=== PATIENT | female | born 1980 | race Caucasian/White ===

== ENCOUNTER 2019-03-28 15:41 | Emergency (ER) | payer SELFPAY ==
[~2019-03-28] VITALS: Ht 162.6 cm; Wt 54.4 kg
--- OUTSIDE RECORDS SUMMARY | 2019-03-28 15:46 | XMS REPORT | Continuity of Care Document ---
Author Organization Unknown Address Unknown Allergies There is no data. Medications There is no data. Problems There is no data. Procedures There is no data. Results There is no data. Encounters ACCT No. Visit Date/Time Discharge Status Pt. Type Provider Facility Loc./Unit Complaint [id number] 03/18/2019 09:00:00 03/18/2019 23:59:59 [facility]
[2019-03-28] MEDS ORDERED: RT-ALBUTEROL/IPRATROPIUM 3 ML (DUONEB) VIAL INH ONE (16:45)
--- NOTE | 2019-03-28 16:54 | ED Back Pain ---
General Chief Complaint: Back Problems Stated Complaint: BACK PAIN Source of Information: Patient Exam Limitations: No Limitations History of Present Illness Date Seen by Provider: Mar 28, 2019 Time Seen by Provider: 16:40 Initial Comments Here with report of right-sided low back pain after having to lift her boyfriend who also has a back injury. This is been going on over the last couple of weeks. Zkhi-flh-wwbjkxm Aleve is not helping. Denies bowel or bladder incontinence. Denies other injuries or concerns. Location: Lumbar Spine, Paraspinous Muscles Timing/Duration: 1 Week Severity: Moderate Pain/Injury Location: Back Radiation: Buttocks, Upper Legs Method of Injury: Other Modifying Factors: Worse With Movement; Improves With Rest Associated Symptoms: muscle spasms; No fever, No weakness, No numbness in legs/feet, No tingling in legs/feet, No sensory/motor loss; lower back pain; No loss of bladder control, No loss of bowel control Allergies and Home Medications Allergies Coded Allergies: No Known Drug Allergies (Unverified , 03/28/19) Patient Home Medication List Home Medication List Reviewed: Yes Review of Systems Constitutional: see HPI; No chills, No fever Respiratory: no symptoms reported Cardiovascular: no symptoms reported Gastrointestinal: no symptoms reported Musculoskeletal: see HPI, back pain, muscle pain, muscle stiffness Skin: no symptoms reported Psychiatric/Neurological: No Symptoms Reported Past Nftjxjp-Jalzll-Vqkuqr Hx Past Med/Social Hx: Reviewed Nursing Past Med/Soc Hx Patient Social History Alcohol Use: Denies Use Recreational Drug Use: No Smoking Status: Never a Smoker Recent Foreign Travel: No Contact w/Someone Who Travel: No Past Medical History Surgeries: No Respiratory: No Cardiac: No Family Medical History No Pertinent Family Hx Physical Exam Vital Signs Capillary Refill : Height, Weight, BMI Height: '" Weight: lbs. oz. kg; BMI Method: General Appearance: No Apparent Distress, WD/WN Cardiovascular: Regular Rate, Rhythm, No Murmur Respiratory: Lungs Clear, Normal Breath Sounds Gastrointestinal: Non Tender, Soft Back: Decreased Range of Motion, Muscle Spasm (right-sided); No Vertebral Tenderness Extremity: Normal Range of Motion, Non Tender Neurologic/Psychiatric: Alert, Oriented x3 Skin: Normal Color, Warm/Dry, Other (multiple sores noted throughout skin on back.) Progress/Results/Core Measures Results/Orders My Orders Orders - KAYLA BERUMEN MD Chest Pa/Lat (2 View) (03/28/19 16:35) Albuterol/Ipra Inhalation Soln (Duoneb I (03/28/19 16:45) Progress Progress Note : Progress Note Seen and evaluated. Declined Toradol. Discharged home with return precautions. Patient verbalize understanding instructions and agreement with plan. Departure Impression Primary Impression: Lumbar radiculopathy Additional Impression: Lumbar sprain Qualified Codes: S33.5XXA - Sprain of ligaments of lumbar spine, initial encounter Disposition: HOME, SELF-CARE Condition: Stable Departure-Patient Inst. Decision time for Depature: 16:52 Referrals: NO,LOCAL PHYSICIAN (PCP) Primary Care Physician Patient Instructions: Low Back Pain (DC), Muscle Strain (DC), Radiculopathy (DC) Add. Discharge Instructions: All discharge instructions reviewed with patient and/or family. Voiced understanding. Take medications as directed. You may take Aleve 1 or 2 tablets every 12 hours as needed for pain.. You may also take Tylenol/acetaminophen 650 mg every 8 hours as needed for pain. You may use oioa-gkz-zmvcrym Icy Hot with lidocaine patches, Aspercreme with lidocaine patches, Salonpas with lidocaine patches for similar items to area of concern per package directions. Follow-up with your Dr. in a few days for recheck. Return for worse pain, weakness, numbness between your legs, difficulty with walking or going to the bathroom or other concerns as needed. Scripts Prednisone (Prednisone) 20 Mg Tab 40 MG PO DAILY, #14 TAB 0 Refills Prov: KAYLA BERUMEN MD 03/28/19 Cyclobenzaprine HCl (Cyclobenzaprine HCl) 10 Mg Tablet 10 MG PO Q8H PRN for SPASMS, #15 TAB 0 Refills Prov: KAYLA BERUMEN MD 03/28/19 KAYLA BERUMEN MD Mar 28, 2019 16:54
[2019-03-28] MEDS ORDERED: PRD20T PO (16:55)
[2019-03-28] MEDS ORDERED: CYCL10TA9 PO (16:55)
[2019-03-28 17:00] VITALS: BP 104/77
== END 2019-03-28 17:00 | disposition home or self-care (01) ==
LOC: ER FS 15:43
DX: S33.5XXA Sprain of ligaments of lumbar spine, initial encounter (principal); M54.16 Radiculopathy, lumbar region; X50.0XXA Overexertion from strenuous movement or load, initial encounter
CPT/HCPCS: 99281

== ENCOUNTER 2019-08-10 23:53 | Emergency (ER) | payer SELFPAY ==
[~2019-08-10] VITALS: Ht 157.5 cm; Wt 54.5 kg
[~2019-08-10 23:53] MED LIST: CYCL10TA9 PO; PRD20T PO
--- NOTE | 2019-08-11 00:08 | ED EENT ---
History of Present Illness General Chief Complaint: Ear Problems Stated Complaint: EAR ACHE,HEADACHE Source: patient Exam Limitations: no limitations History of Present Illness Date Seen by Provider: Aug 11, 2019 Time Seen by Provider: 00:05 Initial Comments 39-year-old female presents with right ear pain. Reports it also causing her a headache. Reports it started yesterday, she has a lot of congestion. Patient thinks that maybe she's had a fever, mild cough. Allergies and Home Medications Allergies Coded Allergies: No Known Drug Allergies (Unverified , 03/28/19) Home Medications Cyclobenzaprine HCl 10 Mg Tablet, 10 MG PO Q8H PRN for SPASMS Prescribed by: KAYLA BERUMEN on 03/28/191654 Prednisone 20 Mg Tab, 40 MG PO DAILY Prescribed by: KAYLA BERUMEN on 03/28/191654 Patient Home Medication List Home Medication List Reviewed: Yes Review of Systems Review of Systems Constitutional: No chills, No dizziness Eyes: No Symptoms Reported Ears: See HPI Nose: congestion Mouth: no symptoms reported Throat: no symptoms reported Respiratory: cough; No short of breath Cardiovascular: No chest pain Skin: no symptoms reported Past Wsxnxri-Sfomfs-Bvdugu Hx Past Med/Social Hx: Reviewed Nursing Past Med/Soc Hx Patient Social History Alcohol Use: Denies Use Recreational Drug Use: No Drug of Choice: hx-meth Type Used: Cigarettes 2nd Hand Smoke Exposure: Yes Recent Foreign Travel: No Contact w/Someone Who Travel: No Recent Hopitalizations: No Physical Abuse: No Sexual Abuse: No Mistreated: No Fear: No Immunizations Up To Date Tetanus Booster (TDap): Unknown Seasonal Allergies Seasonal Allergies: No Past Medical History Surgeries: No Respiratory: No Cardiac: No Neurological: No Genitourinary: No Gastrointestinal: No Musculoskeletal: No Endocrine: No HEENT: No Cancer: No Psychosocial: No Integumentary: No Blood Disorders: No Family Medical History No Pertinent Family Hx Physical Exam Vital Signs Vital Signs - First Documented 08/11/19 00:01 Temp 37.0 Pulse 99 Resp 16 B/P (MAP) 106/89 (95) Pulse Ox 98 O2 Delivery Room Air Height, Weight, BMI Height: 5'4.00" Weight: 120lbs. oz. 54.410454ph; BMI Method:Stated General Appearance: WD/WN, no apparent distress Eyes: bilateral eye normal inspection Ears: right ear auricle normal, right ear canal normal, right ear other (mild fluid otherwise normal); left ear TM normal Nose: normal inspection Mouth/Throat: pharynx normal Neck: non-tender Cardiovascular: normal peripheral pulses, regular rate, rhythm Respiratory: chest non-tender, lungs clear, normal breath sounds Neurologic/Psychiatric: normal mood/affect, oriented x 3 Skin: normal color Progress/Results/Core Measures Results/Orders Vital Signs/I&O 08/11/19 08/11/19 00:01 00:13 Temp 37.0 37.0 Pulse 99 99 Resp 16 16 B/P (MAP) 106/89 (95) 106/89 (95) Pulse Ox 98 98 O2 Delivery Room Air Departure Impression Primary Impression: Acute serous otitis media of right ear Qualified Codes: H65.01 - Acute serous otitis media, right ear Additional Impression: Viral URI Disposition: HOME, SELF-CARE Condition: Stable Departure-Patient Inst. Referrals: NO,LOCAL PHYSICIAN (PCP) Primary Care Physician Patient Instructions: Viral Upper Respiratory Infection, Adult (DC), Serous Otitis Media DANIELA OSORIO DO Aug 11, 2019 00:08
[2019-08-11 00:13] VITALS: BP 106/89
== END 2019-08-11 00:13 | disposition home or self-care (01) ==
LOC: EDUNIT# 23:53 → ER FS 23:57
DX: H65.01 Acute serous otitis media, right ear (principal); J06.9 Acute upper respiratory infection, unspecified; Z79.52 Long term (current) use of systemic steroids; Z77.22 Contact with and (suspected) exposure to environmental tobacco smoke (acute) (chronic)
CPT/HCPCS: 99282

== ENCOUNTER 2019-08-27 10:00 | Emergency (ER) | payer SELFPAY ==
[~2019-08-27] VITALS: Ht 162 cm; Wt 70.0 kg
[2019-08-27 10:14] VITALS: BP 103/65
--- NOTE | 2019-08-27 10:16 | ED Upper Extremity ---
General Chief Complaint: Upper Extremity Stated Complaint: LT WRIST PAIN Nursing Triage Note: LEFT WRIST PAIN. 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 PAIN HAS BEEN WAXING AND WANING FOR 2-3 DAYS NOW. Nursing Sepsis Screen: No Definite Risk History of Present Illness Date Seen by Provider: Aug 27, 2019 Time Seen by Provider: 10:10 Initial Comments 39-year-old female history as described by nurse above is accurate patient very specifically describes pain and tenderness in the extensor tendons of the thumb radiating up onto the wrist and forearm there has been no fall or injury Allergies and Home Medications Allergies Coded Allergies: No Known Drug Allergies (Unverified , 03/28/19) Home Medications Cyclobenzaprine HCl 10 Mg Tablet, 10 MG PO Q8H PRN for SPASMS Prescribed by: KAYLA BERUMEN on 03/28/191654 Prednisone 20 Mg Tab, 40 MG PO DAILY Prescribed by: KAYLA BERUMEN on 03/28/191654 Patient Home Medication List Home Medication List Reviewed: Yes Review of Systems Constitutional: no symptoms reported EENTM: no symptoms reported Respiratory: no symptoms reported Cardiovascular: no symptoms reported Gastrointestinal: No abdominal pain Genitourinary: no symptoms reported Past Vmfevll-Gkqooz-Nrfncy Hx Patient Social History Drug of Choice: hx-meth Type Used: Cigarettes 2nd Hand Smoke Exposure: Yes Recent Foreign Travel: No Contact w/Someone Who Travel: No Recent Infectious Disease Expo: No Recent Hopitalizations: No Immunizations Up To Date Tetanus Booster (TDap): Unknown Seasonal Allergies Seasonal Allergies: No Past Medical History Surgeries: No Respiratory: No Cardiac: No Neurological: No Genitourinary: No Gastrointestinal: No Musculoskeletal: No Endocrine: No HEENT: No Cancer: No Psychosocial: No Integumentary: No Blood Disorders: No Family Medical History No Pertinent Family Hx Physical Exam Vital Signs Vital Signs - First Documented 08/27/19 10:07 Temp 36.2 Pulse 90 Resp 18 B/P (MAP) 103/65 (78) Pulse Ox 98 O2 Delivery Room Air Capillary Refill : Less Than 3 Seconds Height, Weight, BMI Height: 5'4.00" Weight: 120lbs. oz. 54.718935md; 26.00 BMI Method:Stated General Appearance: WD/WN, no apparent distress HEENT: PERRL/EOMI, pharynx normal Neck: supple Cardiovascular: regular rate, rhythm Respiratory: normal breath sounds Gastrointestinal: normal bowel sounds (left hand/wrist ext tendons tender from dorsal thumb to radial wrist typical deQuervains) Progress/Results/Core Measures Results/Orders My Orders Orders - LEONARD OLSEN MD Cockup Splint (08/27/19 10:09) Vital Signs/I&O 08/27/19 10:07 Temp 36.2 Pulse 90 Resp 18 B/P (MAP) 103/65 (78) Pulse Ox 98 O2 Delivery Room Air Blood Pressure Mean: 78 POS Departure Impression Primary Impression: Tenosynovitis, de Quervain Disposition: HOME, SELF-CARE Condition: Stable Departure-Patient Inst. Decision time for Depature: 10:15 Referrals: [facility] (PCP) Primary Care Physician GHISLAINE BRYANT APRN (Family) Primary Care Physician Patient Instructions: De Quervain's Tenosynovitis Scripts Indomethacin (Indomethacin) 50 Mg Capsule 50 MG PO TIDWM, #20 CAP Prov: LEONARD OLSEN MD 08/27/19 LEONARD OLSEN MD Aug 27, 2019 10:16 POS
[2019-08-27] MEDS ORDERED: INDO50CA11 PO (10:18)
== END 2019-08-27 10:21 | disposition home or self-care (01) ==
LOC: EDUNIT# 10:00 → ER FS 10:01
DX: M65.4 Radial styloid tenosynovitis [de Quervain] (principal); Z79.52 Long term (current) use of systemic steroids; Z77.22 Contact with and (suspected) exposure to environmental tobacco smoke (acute) (chronic)
CPT/HCPCS: 99282

== ENCOUNTER 2019-10-29 11:43 | Emergency (ER) | payer SELFPAY ==
[~2019-10-29] VITALS: Ht 162 cm; Wt 57.0 kg
[~2019-10-29 11:43] MED LIST changes: +INDO50CA82 PO
[2019-10-29] MEDS ORDERED: IBUPROFEN 800 MG (MOTRIN) TAB PO ONE (12:45)
--- NOTE | 2019-10-29 13:23 | ED Back Pain ---
General Chief Complaint: Back Problems Stated Complaint: FALL - BACK/NECK PAIN, LT ARM PAIN Nursing Triage Note: PT FELL AT 0945 THIS AM AT [employer]. NO REDNESS, ABRASIONS, OR SWELLING NOTED TO THE LOWER BACK AREA. PT ALSO COMPLAINS OF LEFT WRIST PAIN. NO SWELLING, ABRASION, OR DEFORMITIES NOTED. PT RATES PAIN AT 102/10 Nursing Sepsis Screen: No Definite Risk Source of Information: Patient Exam Limitations: No Limitations History of Present Illness Date Seen by Provider: Oct 29, 2019 Time Seen by Provider: 13:20 Initial Comments This 39-year-old white female presents after she fell at [employer] shortly prior to presentation emergency department. She fell onto her low back and left wrist. She complained of pain in both areas. She's been able to weight-bear and employed in the left upper extremity but with discomfort. She denies associated head injury. She has no neck or back pain other than in the low back. She denies paresthesias or weakness of any of her 4 extremities. She denies trauma to the chest or abdomen. Patient's pain is sharp in nature and severe. It is made worse with movement. Allergies and Home Medications Allergies Coded Allergies: No Known Drug Allergies (Unverified , 03/28/19) Home Medications Cyclobenzaprine HCl 10 Mg Tablet, 10 MG PO Q8H PRN for SPASMS Prescribed by: KAYLA BERUMEN on 03/28/19 1655 Indomethacin 50 Mg Capsule, 50 MG PO TIDWM Prescribed by: LEONARD OLSEN on 08/27/19 1018 Prednisone 20 Mg Tab, 40 MG PO DAILY Prescribed by: KAYLA BERUMEN on 03/28/19 1655 Patient Home Medication List Home Medication List Reviewed: Yes Review of Systems Constitutional: no symptoms reported EENTM: no symptoms reported Respiratory: no symptoms reported Cardiovascular: no symptoms reported Gastrointestinal: no symptoms reported, see HPI Musculoskeletal: see HPI, back pain, joint pain (left wrist) Skin: no symptoms reported, other Psychiatric/Neurological: No Symptoms Reported (no abrasions) Past Lznkguw-Mskjoy-Phxvbm Hx Past Med/Social Hx: Reviewed Nursing Past Med/Soc Hx Patient Social History Alcohol Use: Denies Use Recreational Drug Use: No Drug of Choice: hx-meth Type Used: Cigarettes 2nd Hand Smoke Exposure: Yes Recent Foreign Travel: No Contact w/Someone Who Travel: No Recent Infectious Disease Expo: No Recent Hopitalizations: No Physical Abuse: No Sexual Abuse: No Mistreated: No Fear: No Immunizations Up To Date Tetanus Booster (TDap): Unknown Seasonal Allergies Seasonal Allergies: No Past Medical History Surgeries: No Respiratory: No Cardiac: No Neurological: No Genitourinary: No Gastrointestinal: No Musculoskeletal: No Endocrine: No HEENT: No Cancer: No Psychosocial: No Integumentary: No Blood Disorders: No Family Medical History No Pertinent Family Hx Physical Exam Vital Signs Vital Signs - First Documented 10/29/19 11:54 Temp 36.4 Pulse 92 Resp 18 B/P (MAP) 114/69 (84) Pulse Ox 100 O2 Delivery Room Air Capillary Refill : Less Than 3 Seconds Height, Weight, BMI Height: 5'4.00" Weight: 120lbs. oz. 54.602148xy; 21.00 BMI Method:Stated General Appearance: Moderate Distress, Thin HEENT: PERRL/EOMI, Normal ENT Inspection, Pharynx Normal Neck: Full Range of Motion, Normal Inspection, Non Tender Cardiovascular: Regular Rate, Rhythm, No Murmur Respiratory: Lungs Clear, Normal Breath Sounds Gastrointestinal: Normal Bowel Sounds, Non Tender, Soft Back: Normal Inspection, Other (there is tenderness palpation over the lumbar spine area.) Extremity: Normal Capillary Refill, Normal Inspection, Other (or tenderness palpation over the left wrist which is not swollen and has no deformity.) Neurologic/Psychiatric: Alert, No Motor/Sensory Deficits Skin: Normal Color, Warm/Dry Progress/Results/Core Measures Results/Orders My Orders Orders - PREMA COREAS MD Lumbar Spine 4 View Or More (10/29/19 12:42) Wrist 3 View Left (10/29/19 12:42) Ibuprofen Tablet (Motrin Tablet) (10/29/19 12:45) Vital Signs/I&O 10/29/19 11:54 Temp 36.4 Pulse 92 Resp 18 B/P (MAP) 114/69 (84) Pulse Ox 100 O2 Delivery Room Air 2 Blood Pressure Mean: 84 Progress Progress Note : Time: 14:15 Progress Note X-rays failed to demonstrate evidence of fracture or dislocation of the L-spine or left wrist. Patient received ibuprofen orally in the emergency department. Departure Impression Primary Impression: Lumbar sprain Qualified Codes: S33.5XXA - Sprain of ligaments of lumbar spine, initial encounter Additional Impression: Wrist contusion Qualified Codes: S60.212A - Contusion of left wrist, initial encounter Disposition: HOME, SELF-CARE Condition: Improved Departure-Patient Inst. Decision time for Depature: 14:19 Referrals: [facility] (PCP) Primary Care Physician GHISLAINE BRYANT APRN (Family) Primary Care Physician Patient Instructions: Low Back Pain (DC) Add. Discharge Instructions: Ibuprofen for pain. Follow-up with [facility] on Thursday. Return if any problems or questions. All discharge instructions reviewed with patient and/or family. Voiced understanding. Scripts Ibuprofen (Ibuprofen) 800 Mg Tablet 800 MG PO Q8H PRN for PAIN, #30 TAB 0 Refills Prov: PREMA COREAS MD 10/29/19 PREMA COREAS MD Oct 29, 2019 13:23
--- NOTE | 2019-10-29 13:28 | Diagnostic Imaging Report ---
EXAMINATION: Lumbar spine radiographs, 5 views. COMPARISON: None. HISTORY: 39-year-old female, fall. Back pain. FINDINGS: There are 5 lumbar-type vertebral bodies. There is no identified pars interarticularis defect. There is no identified compression deformity. There is mild disc height loss at L5-S1. There are no pronounced facet degenerative changes. The sacroiliac joints are unremarkable in appearance. IMPRESSION: 1. No identified compression deformity or fracture. 2. Mild disc height loss at L5-S1. Dictated by: Dictated on workstation # [id number]
--- NOTE | 2019-10-29 13:29 | Diagnostic Imaging Report ---
EXAMINATION: Left wrist radiographs, 3 views. COMPARISON: None. HISTORY: 39-year-old female, fall. Left wrist pain. FINDINGS: There is no identified acute fracture. Bone mineralization and alignment is unremarkable. There is no prominent focal soft tissue swelling. There is no radiopaque foreign body. IMPRESSION: No identified acute bony abnormality of the left wrist. Dictated by: Dictated on workstation # [id number]
[2019-10-29] MEDS ORDERED: IBUP-1780 PO (14:20)
[2019-10-29 14:25] VITALS: BP 117/62
== END 2019-10-29 14:25 | disposition home or self-care (01) ==
LOC: EDUNIT# 11:43 → ER FS 11:44
DX: S33.5XXA Sprain of ligaments of lumbar spine, initial encounter (principal); S60.212A Contusion of left wrist, initial encounter; Z79.52 Long term (current) use of systemic steroids; Z77.22 Contact with and (suspected) exposure to environmental tobacco smoke (acute) (chronic); W19.XXXA Unspecified fall, initial encounter; Y92.511 Restaurant or cafe as the place of occurrence of the external cause
CPT/HCPCS: 72110; 73110

== ENCOUNTER 2020-07-11 04:43 | Emergency (ER) | payer SELFPAY ==
[~2020-07-11] VITALS: Ht 162.6 cm; Wt 60.1 kg
[~2020-07-11 04:43] MED LIST changes: +IBUP-1780 PO
[2020-07-11 04:55] VITALS: BP 118/69
--- NOTE | 2020-07-11 04:56 | ED General ---
General Chief Complaint: Fever-Adult/Adol Stated Complaint: FEVER Source of Information: Patient Exam Limitations: No Limitations History of Present Illness Date Seen by Provider: Jul 11, 2020 Time Seen by Provider: 04:56 Initial Comments 41-year-old female presents because she "feels like crap" she just states she doesn't feel well. That she hasn't felt well since yesterday evening when her blood sugar dropped. She states her blood sugar dropped around 56 she developed 80s. She has not checked it since then. She states she's felt warm and has some chills. She denies any cough, nausea, vomiting, diarrhea, loss of taste or smell. Allergies and Home Medications Allergies Coded Allergies: No Known Drug Allergies (Unverified , 03/28/19) Home Medications Cyclobenzaprine HCl 10 Mg Tablet, 10 MG PO Q8H PRN for SPASMS Prescribed by: KAYLA BERUMEN on 03/28/19 1655 Ibuprofen 800 Mg Tablet, 800 MG PO Q8H PRN for PAIN Prescribed by: PREMA COREAS MD on 10/29/19 1420 Indomethacin 50 Mg Capsule, 50 MG PO TIDWM Prescribed by: LEONARD OLSEN on 08/27/19 1018 Prednisone 20 Mg Tab, 40 MG PO DAILY Prescribed by: KAYLA BERUMEN on 03/28/19 1655 Patient Home Medication List Home Medication List Reviewed: Yes Review of Systems Review of Systems Constitutional: chills; No dizziness; malaise; No weakness EENTM: no symptoms reported; No ear pain, No throat pain Respiratory: No cough, No short of breath Cardiovascular: No chest pain, No palpitations Gastrointestinal: No abdominal pain, No nausea, No vomiting Genitourinary: no symptoms reported Musculoskeletal: no symptoms reported Skin: no symptoms reported Psychiatric/Neurological: No Symptoms Reported Hematologic/Lymphatic: See HPI Immunological/Allergic: no symptoms reported Past Zygppku-[place]-Lvgbdx Hx Past Med/Social Hx: Reviewed Nursing Past Med/Soc Hx Patient Social History Drug of Choice: hx-meth Type Used: Cigarettes 2nd Hand Smoke Exposure: Yes Recent Foreign Travel: No Contact w/Someone Who Travel: No Recent Hopitalizations: No Immunizations Up To Date Tetanus Booster (TDap): Unknown Seasonal Allergies Seasonal Allergies: No Past Medical History Surgeries: No Respiratory: No Cardiac: No Neurological: No Genitourinary: No Gastrointestinal: No Musculoskeletal: No Endocrine: No HEENT: No Cancer: No Psychosocial: No Integumentary: No Blood Disorders: No Family Medical History No Pertinent Family Hx Physical Exam Vital Signs Vital Signs - First Documented 07/11/20 04:55 Temp 37.5 Pulse 119 Resp 18 B/P (MAP) 118/69 (85) Pulse Ox 95 O2 Delivery Room Air Capillary Refill : Height, Weight, BMI Height: 5'4.00" Weight: 120lbs. oz. 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 She was offered labs for further evaluation but declined because she "not like needles", she was offered a urinalysis that declined she does not have any urinary symptoms, she was offered a chest x-ray but declined. Patient's bedside glucose was 124. Per patient's request she will be given a work note for today. I discussed with her this likely an early viral illness versus other unknown etiology. Patient should follow with her primary care provider as needed. When reviewing her bedside glucose and likely viral illness. Patient states her sister head 24-hour flu yesterday and thinks this might be what it is. Per her request no further workup will be initiated Departure Impression Primary Impression: Viral syndrome Disposition: 01 HOME, SELF-CARE Condition: Stable Departure-Patient Inst. Referrals: [facility] (PCP) Primary Care Physician GHISLAINE BRYANT APRN (Family) Primary Care Physician Patient Instructions: Viral Syndrome (DC) Add. Discharge Instructions: Emergency department focuses on treating and ruling out life-threatening diseases. Whenever possible, a diagnosis is given. However, most patients are given an impression based on their history, physical exam, and workup during your brief time in the ER. Information about probable diagnosis and other educational material has been provided. Please take the time to read and understand this information. It is very important that you follow up with a physician as discussed during the visit today. Failure to adhere to your follow-up instructions may lead to severe disability, injury, or so please make sure to keep your appointments or obtain one as requested. Please keep in mind the emergency department is not designed to your primary care or "family doctor" and nonurgent issues are best evaluated by an outpatient physician All discharge instructions reviewed with patient and/or family. Voiced u nderstanding. Work/School Note: Work Release Form Date Seen in the Emergency Department: Jul 11, 2020 Return to Work: Jul 12, 2020 DANIELA OSORIO DO Jul 11, 2020 04:56
== END 2020-07-11 05:11 | disposition home or self-care (01) ==
LOC: EDUNIT# 04:43 → ER FS 04:47
DX: B34.9 Viral infection, unspecified (principal); Z79.52 Long term (current) use of systemic steroids; Z77.22 Contact with and (suspected) exposure to environmental tobacco smoke (acute) (chronic)
CPT/HCPCS: 82962

== ENCOUNTER 2021-04-21 23:40 | Emergency (ER) | payer SELFPAY ==
[~2021-04-21] VITALS: Ht 162 cm; Wt 52.1 kg
[2021-04-21 23:48] VITALS: BP 112/63
--- NOTE | 2021-04-21 23:48 | ED Lower Extremity ---
General Stated Complaint: LEFT FOOT INJURY History of Present Illness Date Seen by Provider: Apr 21, 2021 Time Seen by Provider: 11:45 Initial Comments 41-year-old female presents with left ankle pain. Patient reports around 8 PM she stepped in a hole and injured it. She reports she has pain difficulty bearing weight. Pains on the medial aspect of the left ankle. There are some mild swelling. No obvious deformity. Allergies and Home Medications Allergies Coded Allergies: No Known Drug Allergies (Unverified , 03/28/19) Home Medications Cyclobenzaprine HCl 10 Mg Tablet, 10 MG PO Q8H PRN for SPASMS Prescribed by: KAYLA BERUMEN on 03/28/19 1655 Ibuprofen 800 Mg Tablet, 800 MG PO Q8H PRN for PAIN Prescribed by: PREMA COREAS MD on 10/29/19 1420 Indomethacin 50 Mg Capsule, 50 MG PO TIDWM Prescribed by: LEONARD OLSEN on 08/27/19 1018 Prednisone 20 Mg Tab, 40 MG PO DAILY Prescribed by: KAYLA BERUMEN on 03/28/19 1655 Patient Home Medication List Home Medication List Reviewed: Yes Review of Systems Constitutional: no symptoms reported EENTM: no symptoms reported Respiratory: no symptoms reported Cardiovascular: no symptoms reported Gastrointestinal: no symptoms reported Musculoskeletal: see HPI Skin: see HPI Psychiatric/Neurological: No Symptoms Reported Physical Exam Vital Signs Vital Signs - First Documented 04/21/21 23:48 Temp 36.8 Pulse 113 Resp 16 B/P (MAP) 112/63 (79) Pulse Ox 94 O2 Delivery Room Air Capillary Refill : Height, Weight, BMI Height: '" Weight: lbs. oz. kg; BMI Method: General Appearance: no apparent distress Neck: full range of motion, supple Cardiovascular: normal peripheral pulses, regular rate, rhythm Respiratory: lungs clear, normal breath sounds Gastrointestinal: non tender, soft Hips: bilateral hip non-tender Legs: bilateral leg non-tender Knees: bilateral knee non-tender Ankles: right ankle non-tender, right ankle normal inspection, right ankle normal range of motion; left ankle limited range of motion, left ankle soft tissue tenderness, left ankle swelling Neurologic/Psychiatric: alert, normal mood/affect, oriented x 3 Skin: normal color, warm/dry Progress/Results/Core Measures Results/Orders My Orders Orders - DANIELA OSORIO DO Ankle 3 View Left (04/21/21 23:48) Gel Ankle Brace (04/22/21 00:00) Vital Signs/I&O 04/21/21 23:48 Temp 36.8 Pulse 113 Resp 16 B/P (MAP) 112/63 (79) Pulse Ox 94 O2 Delivery Room Air Progress Progress Note : Progress Note X-ray shows no acute fracture dislocation. Patient placed in a gel ankle brace. Patient discharged home in stable condition Diagnostic Imaging Diagonstic Imaging: Xray Plain Films/CT/US/NM/MRI: ankle Comments No acute fracture or dislocation Reviewed: Reviewed by Me Departure Impression Primary Impression: Sprain and strain of ankle Disposition: 01 HOME, SELF-CARE Condition: Stable Departure-Patient Inst. Patient Instructions: Ankle Sprain ED Add. Discharge Instructions: 4% topical lidocaine with menthol to affected area as directed on package Ice to affected area Tylenol or ibuprofen as needed for pain DANIELA OSORIO DO Apr 21, 2021 23:48
--- NOTE | 2021-04-22 07:00 | Diagnostic Imaging Report ---
Indication: Trauma to left ankle AP, oblique and lateral views of left ankle are obtained. FINDINGS: No acute fracture or dislocation is identified. No abnormal lytic or sclerotic focus is seen, and there is no radiopaque foreign body. IMPRESSION: No acute abnormality. Dictated by: Dictated on workstation # [id number]
== END 2021-04-22 00:13 | disposition home or self-care (01) ==
LOC: EDUNIT# 23:40 → ER FS 23:43
DX: S93.402A Sprain of unspecified ligament of left ankle, initial encounter (principal); Z79.52 Long term (current) use of systemic steroids; W18.42XA Slipping, tripping and stumbling without falling due to stepping into hole or opening, initial encounter
CPT/HCPCS: 73610

== ENCOUNTER 2022-04-28 22:06 | Emergency (ER) | payer MEDICAID, OTHER ==
[~2022-04-28] VITALS: Ht 162 cm; Wt 59.0 kg
[~2022-04-28 22:06] MED LIST changes: +CYCL10TA25 PO; -CYCL10TA9 PO
[2022-04-28 22:10] VITALS: BP 127/76
[2022-04-28] MEDS ORDERED: LORazepam 0.5 MG (ATIVAN) TABLET PO STA (22:21)
--- NOTE | 2022-04-28 22:21 | ED Cardiac General ---
History of Present Illness General Chief Complaint: Chest Pain Stated Complaint: CP Source: patient Exam Limitations: no limitations History of Present Illness Date Seen by Provider: Apr 28, 2022 Time Seen by Provider: 22:09 Initial Comments Through [id number] female with past medical history of hypothyroidism coming in due to chest pain. Been going on for roughly 24 hours, feels like someone is punching her in the center of the chest or back somewhat. Tried antacids earlier which did not help. The pain was moderate, constant, however it did stop when she came here and now she is pain-free. Denies any prior history of DVT or PE, no recent surgery, does not take any hormones, no leg swelling or pain, no prior history of [place]. Recently quit smoking. She says she has had "pleurisy" before and this feels similar. Is otherwise denying any shortness of breath, abdominal pain, nausea, vomiting, diarrhea, weakness, numbness, fever, chills, rash, or any other concerns. Of note, she is now following an mechanical unit repairer for over a month now who has been handling her thyroid issues. She says she is much better from that standpoint. Allergies and Home Medications Allergies Coded Allergies: No Known Drug Allergies (Unverified , 03/28/19) Patient Home Medication List Home Medication List Reviewed: Yes Cyclobenzaprine HCl (Cyclobenzaprine HCl) 10 Mg Tablet, 10 MG PO Q8H PRN for SPASMS Prescribed by: KAYLA BERUMEN on 03/28/19 1655 Ibuprofen (Ibuprofen) 800 Mg Tablet, 800 MG PO Q8H PRN for PAIN Prescribed by: PREMA COREAS MD on 10/29/19 1420 Indomethacin (Indomethacin) 50 Mg Capsule, 50 MG PO TIDWM Prescribed by: LEONARD OLSEN on 08/27/19 1018 Prednisone (Prednisone) 20 Mg Tab, 40 MG PO DAILY Prescribed by: KAYLA BERUMEN on 03/28/19 1655 Review of Systems Review of Systems Constitutional: No fever EENTM: No Blurred Vision Respiratory: Denies Cough, Denies Shortness of Air Cardiovascular: Chest Pain Gastrointestinal: Denies Abdominal Pain Genitourinary: No Symptoms Reported Musculoskeletal: no symptoms reported Skin: no symptoms reported Psychiatric/Neurological: No Symptoms Reported Endocrine: No Symptoms Reported Hematologic/Lymphatic: No Symptoms Reported All Other Systems Reviewed Negative Unless Noted: Yes Past Nxjqbjl-Tyknmu-Btpxkg Hx Patient Social History Tobacco Use?: Yes Tobacco type used: Cigarettes Immunizations Up To Date Tetanus Booster (TDap): Unknown Seasonal Allergies Seasonal Allergies: No Past Medical History Surgeries: No Respiratory: No Cardiac: No Neurological: No Genitourinary: No Gastrointestinal: No Musculoskeletal: No Endocrine: No HEENT: No Cancer: No Psychosocial: No Integumentary: No Blood Disorders: No Family Medical History No Pertinent Family Hx Physical Exam Vital Signs Vital Signs - First Documented 04/28/22 04/28/22 22:10 22:35 Temp 36.9 Pulse 69 Resp 18 B/P (MAP) 127/76 (93) O2 Delivery Room Air Capillary Refill : Height, Weight, BMI Height: 5'4.00" Weight: 120lbs. oz. 54.765141er; 19.00 BMI Method:Stated General Appearance: No Apparent Distress, WD/WN HEENT: PERRL/EOMI, Normal ENT Inspection, Pharynx Normal Neck: Full Range of Motion, Normal Inspection, Non Tender, Supple Respiratory: Chest Non Tender, Lungs Clear, Normal Breath Sounds, No Accessory Muscle Use, No Respiratory Distress Cardiovascular: Regular Rate, Rhythm, No Edema, Normal Peripheral Pulses Gastrointestinal: Normal Bowel Sounds, Non Tender, Soft; No Distended, No Guarding Extremity: Normal Capillary Refill, Normal Inspection, Normal Range of Motion, Non Tender, No Calf Tenderness, No Pedal Edema Neurologic/Psychiatric: Alert, No Motor/Sensory Deficits, Normal Mood/Affect Skin: Normal Color, Warm/Dry Lymphatic: No Adenopathy Progress/Results/Core Measures Results/Orders Lab Results Laboratory Tests Test 04/28/22 22:16 Range/Units White Blood Count 10.2 4.3-11.0 10^3/uL Red Blood Count 4.60 3.80-5.11 10^6/uL Hemoglobin 13.8 11.5-16.0 g/dL Hematocrit 39 35-52 % Mean Corpuscular Volume 85 80-99 fL Mean Corpuscular Hemoglobin 30 25-34 pg Mean Corpuscular Hemoglobin Concent 35 32-36 g/dL Red Cell Distribution Width 13.2 10.0-14.5 % Platelet Count 265 130-400 10^3/uL Mean Platelet Volume 9.9 9.0-12.2 fL Immature Granulocyte % (Auto) 0 % Neutrophils (%) (Auto) 43 42-75 % Lymphocytes (%) (Auto) 50 H 12-44 % Monocytes (%) (Auto) 4 0-12 % Eosinophils (%) (Auto) 2 0-10 % Basophils (%) (Auto) 1 0-10 % Neutrophils # (Auto) 4.4 1.8-7.8 10^3/uL Lymphocytes # (Auto) 5.1 H 1.0-4.0 10^3/uL Monocytes # (Auto) 0.4 0.0-1.0 10^3/uL Eosinophils # (Auto) 0.2 0.0-0.3 10^3/uL Basophils # (Auto) 0.1 0.0-0.1 10^3/uL Immature Granulocyte # (Auto) 0.0 0.0-0.1 10^3/uL Prothrombin Time 13.2 12.2-14.7 SEC INR Comment 1.0 0.8-1.4 Activated Partial Thromboplast Time 29 24-35 SEC Sodium Level 138 135-145 MMOL/L Potassium Level 4.3 3.6-5.0 MMOL/L Chloride Level 105 98-107 MMOL/L Carbon Dioxide Level 23 21-32 MMOL/L Anion Gap 10 5-14 MMOL/L Blood Urea Nitrogen 12 7-18 MG/DL Creatinine 1.24 0.60-1.30 MG/DL Estimat Glomerular Filtration Rate 55 BUN/Creatinine Ratio 10 Glucose Level 122 H 70-105 MG/DL Calcium Level 9.0 8.5-10.1 MG/DL Corrected Calcium 9.0 8.5-10.1 MG/DL Magnesium Level 1.9 1.6-2.4 MG/DL Total Bilirubin 0.2 0.1-1.0 MG/DL Aspartate Amino Transf (AST/SGOT) 15 5-34 U/L Alanine Aminotransferase (ALT/SGPT) 19 0-55 U/L Alkaline Phosphatase 344 H 40-136 U/L Troponin I < 0.30 <0.30 NG/ML Total Protein 6.8 6.4-8.2 GM/DL Albumin 4.0 3.2-4.5 GM/DL Smear Scan OK My Orders Orders - MARCELO MENA MD Ekg Tracing (04/28/22 22:09) Cbc With Automated Diff (04/28/22 22:10) Magnesium (04/28/22 22:10) Chest 1 View Ap/Pa Only (04/28/22 22:10) Ekg Tracing (04/28/22 22:10) Comprehensive Metabolic Panel (04/28/22 22:10) Protime With Inr (04/28/22 22:10) Partial Thromboplastin Time (04/28/22 22:10) O2 (04/28/22 22:10) Monitor-Rhythm Ecg Trace Only (04/28/22 22:10) Ed Iv/Invasive Line Start (04/28/22 22:10) Troponin I Fs (04/28/22 22:10) Lidocaine 2% Viscous 15 Ml (Xylocaine Vi (04/28/22 22:30) Antacid Suspension (Mylanta Suspension (04/28/22 22:30) Ketorolac Injection (Toradol Injection) (04/28/22 22:30) Lorazepam Tablet (Ativan Tablet) (04/28/22 22:21) Medications Given in ED Current Medications Medications Dose Ordered Sig/Francis Route Start Time Stop Time Status Last Admin Dose Admin Al Hydrox/Mg Hydrox/Simethicone 30 ml ONCE ONCE PO 04/28/22 22:30 04/28/22 22:31 DC 04/28/22 22:42 30 ML Ketorolac Tromethamine 15 mg ONCE ONCE IVP 04/28/22 22:30 04/28/22 22:31 DC 04/28/22 22:43 15 MG Lidocaine HCl 15 ml ONCE ONCE PO 04/28/22 22:30 04/28/22 22:31 DC 04/28/22 22:42 15 ML Vital Signs/I&O 04/28/22 04/28/22 22:10 22:35 Temp 36.9 Pulse 69 Resp 18 B/P (MAP) 127/76 (93) O2 Delivery Room Air Progress Progress Note : Progress Note 42yoF with above history coming in for chest pain. ABCs were intact and vitals were stable on presentation. Physical exam reassuring with no focal abnormalities. EKG with no acute ischemic changes. Chest x-ray my interpretation with normal cardiac silhouette, no focal opacities, no pneumothorax. Physical labs including cardiac biomarkers normal. She is low risk for PE per [facility] criteria and is PERC negative. I believe the patient is stable for discharge with outpatient follow-up. She was sent home with strict return precautions. Initial ECG Impression Date: Apr 28, 2022 Initial ECG Impression Time: 22:13 Initial ECG Rate: 68 Initial ECG Rhythm: Normal Sinus Comment Narrow QRS, normal axis, no significant ST changes or T wave abnormalities Departure Impression Primary Impression: Chest pain Qualified Codes: R07.82 - Intercostal pain Disposition: 01 HOME, SELF-CARE Condition: Stable Departure-Patient Inst. Decision time for Depature: 23:19 Referrals: [facility]/VICKIE (PCP) Primary Care Physician GHISLAINE BRYANT APRN (Family) Primary Care Physician Patient Instructions: Chest Pain (DC) Add. Discharge Instructions: It does not appear like this is coming from your heart. Your x-ray looks good as well. He can try Tylenol and/or ibuprofen as needed for your pain. Possible this is pleurisy similar to what you have had in the past, but this will not be life-threatening at this time. If things worsen or you are concerned you can call your regular doctor or come back to the ER Work/School Note: Work Release Form Date Seen in the Emergency Department: Apr 28, 2022 Return to Work: Apr 30, 2022 Restrictions: No Restrictions MARCELO MENA MD Apr 28, 2022 22:21
[2022-04-28 22:24] LABS: BASOPHILS # (AUTO) 0.1 10^3/uL (0.0-0.1); BASOPHILS % (AUTO) 1 % (0-10); EOSINOPHILS # (AUTO) 0.2 10^3/uL (0.0-0.3); EOSINOPHILS % (AUTO) 2 % (0-10); HEMATOCRIT 39 % (35-52); HEMOGLOBIN 13.8 g/dL (11.5-16.0); LYMPHOCYTES # (AUTO) 5.1 10^3/uL (1.0-4.0); LYMPHOCYTES % (AUTO) 50 % (12-44); MEAN CORPUSCULAR HEMOGLOBIN 30 pg (25-34); MEAN CORPUSCULAR HGB CONC 35 g/dL (32-36); MEAN CORPUSCULAR VOLUME 85 fL (80-99); MEAN PLATELET VOLUME 9.9 fL (9.0-12.2); MONOCYTES # (AUTO) 0.4 10^3/uL (0.0-1.0); MONOCYTES % (AUTO) 4 % (0-12); NEUTROPHILS # (AUTO) 4.4 10^3/uL (1.8-7.8); NEUTROPHILS % (AUTO) 43 % (42-75); PLATELET COUNT 265 10^3/uL (130-400); WHITE BLOOD COUNT 10.2 10^3/uL (4.3-11.0)
[2022-04-28] MEDS ORDERED: ANTACID SUSP 30 ML UDC (MYLANTA) PO ONE (22:30)
[2022-04-28] MEDS ORDERED: LIDOCAINE 2% VISCOUS 15 ML UDC PO ONE (22:30)
[2022-04-28] MEDS ORDERED: KETOROLAC 30 MG/ML VIAL IVP ONE (22:30)
[2022-04-28 22:51] LABS: SMEAR SCAN COMMENT OK
[2022-04-28 22:54] LABS: PROTHROMBIN TIME PATIENT 13.2 SEC (12.2-14.7)
[2022-04-28 22:55] LABS: CREATININE SERUM 1.24 MG/DL (0.60-1.30); POTASSIUM 4.3 MMOL/L (3.6-5.0)
[2022-04-28 22:56] LABS: BILIRUBIN,TOTAL 0.2 MG/DL (0.1-1.0); MAGNESIUM 1.9 MG/DL (1.6-2.4); TOTAL PROTEIN 6.8 GM/DL (6.4-8.2)
--- NOTE | 2022-04-29 06:22 | Diagnostic Imaging Report ---
INDICATION: Chest pain. EXAMINATION: Chest 04/28/2022 FINDINGS: The cardiomediastinal silhouette is unremarkable. The pulmonary vasculature is within normal limits. The lungs and pleural spaces are clear. IMPRESSION: No evidence of an acute cardiopulmonary process. Dictated by: Dictated on workstation # [id number]
== END 2022-04-28 23:30 ==
LOC: EDUNIT# 22:06 → ER FS 22:07
DX: R07.82 Intercostal pain (principal); Z87.891 Personal history of nicotine dependence; Z28.310 Unvaccinated for COVID-19
CPT/HCPCS: 36415; 71045; 80053; 83735; 84484; 85025; 85610; 85730; 93005; 93041

== ENCOUNTER 2023-01-23 07:20 | Emergency (ER) | payer MEDICAID ==
[~2023-01-23] VITALS: Ht 162.5 cm; Wt 67.7 kg
[2023-01-23] MEDS ORDERED: cefTRIAXone PRE-MIX 50 ML IV STA (07:32)
[2023-01-23] MEDS ORDERED: NS IV 1000 ML 1,000 ML IV STA (07:32)
--- NOTE | 2023-01-23 07:41 | ED General ---
General Chief Complaint: Dizziness/Syncope Stated Complaint: DIZZINESS Source of Information: Patient History of Present Illness Date Seen by Provider: Jan 23, 2023 Time Seen by Provider: 07:24 Initial Comments 43-year-old female presenting with complaints of dizziness and not feeling well that started yesterday along with UTI symptoms. She states that she has been drinking a lot of water to the point that she had diluted her urine yesterday where they could only see if there was blood in the urine. She had gone to the urgent care clinic for [facility] and they told her they were concerned about her blood pressure being low yesterday. She was started on Bactrim for UTI as well as Pyridium. She states that she has been drinking a lot of water but woke up this morning feeling poorly and was dizzy. She states she is dizzy at all times but it is worse when she stands or is moving. She had tried checking her blood pressure at home and it was low. She denies having any nausea, vomiting, fever, chills, cough, congestion, sore throat, runny nose, abdominal pain, diarrhea, constipation. She was having pain with urination but since she started the Pyridium and Bactrim the pain is gone. Timing/Duration: 1-2 Days Severity: Moderate Modifying Factors: worse with Movement Associated Systoms: No Chest Pain, No Cough, No Diaphoresis, No Fever/Chills, No Headaches, No Loss of Appetite; Malaise; No Nausea/Vomiting, No Rash, No Seizure, No Shortness of Air, No Syncope Allergies and Home Medications Allergies Coded Allergies: Penicillins (Verified Allergy, Unknown, 01/23/23) Patient Home Medication List Home Medication List Reviewed: Yes Cyclobenzaprine HCl (Cyclobenzaprine HCl) 10 Mg Tablet, 10 MG PO Q8H PRN for SPASMS Prescribed by: KAYLA BERUMEN on 03/28/19 165 Ibuprofen (Ibuprofen) 800 Mg Tablet, 800 MG PO Q8H PRN for PAIN Prescribed by: PREMA COREAS MD on 10/29/19 1420 Indomethacin (Indomethacin) 50 Mg Capsule, 50 MG PO TIDWM Prescribed by: LEONARD OLSEN on 08/27/19 1018 Prednisone (Prednisone) 20 Mg Tab, 40 MG PO DAILY Prescribed by: KAYLA BERUMEN on 03/28/19 165 Review of Systems Review of Systems Constitutional: No chills; dizziness; No fever EENTM: see HPI Respiratory: No cough, No short of breath Cardiovascular: No chest pain, No syncope Gastrointestinal: No abdominal pain, No constipation, No diarrhea, No nausea, No vomiting Genitourinary: see HPI, dysuria (yesterday but resolved with taking Pyridium ) Musculoskeletal: no symptoms reported Skin: No rash Psychiatric/Neurological: Denies Headache Past Rfiwpxg-Cqnora-Urdfap Hx Immunizations Up To Date Tetanus Booster (TDap): Unknown Seasonal Allergies Seasonal Allergies: No Past Medical History Surgery/Hospitalization HX: Hypothyroid Surgeries: Yes Thyroidectomy Respiratory: No Cardiac: No Neurological: No Genitourinary: No Gastrointestinal: No Musculoskeletal: No Endocrine: Yes Hypothyroidsim HEENT: No Cancer: No Psychosocial: No Integumentary: No Blood Disorders: No Family Medical History No Pertinent Family Hx Physical Exam Vital Signs Vital Signs - First Documented 01/23/23 07:26 Temp 36.6 Pulse 89 Resp 16 B/P (MAP) 119/69 (86) Pulse Ox 94 O2 Delivery Room Air Capillary Refill : Height, Weight, BMI Height: 5'4.00" Weight: 120lbs. oz. 54.027284tf; 22.00 BMI Method:Stated General Appearance: No Apparent Distress, WD/WN HEENT: PERRL/EOMI; No Moist Mucous Membranes (slightly dry) Neck: Full Range of Motion, Normal Inspection, Non Tender, Supple Respiratory: Chest Non Tender, Lungs Clear, Normal Breath Sounds, No Accessory Muscle Use, No Respiratory Distress Cardiovascular: Regular Rate, Rhythm, Normal Peripheral Pulses Gastrointestinal: Normal Bowel Sounds, No Pulsatile Mass, Non Tender, Soft Rectal: Deferred Extremity: Normal Capillary Refill, Normal Inspection, No Pedal Edema Neurologic/Psychiatric: Alert, Oriented x3 Skin: Normal Color, Warm/Dry Progress/Results/Core Measures Suspected Sepsis SIRS Temperature: Pulse: Respiratory Rate: Laboratory Tests 01/23/23 07:30: White Blood Count 9.0 Blood Pressure / Mean: Laboratory Tests 01/23/23 07:30: Creatinine 1.13, Platelet Count 263, Total Bilirubin 0.4 Results/Orders Lab Results Laboratory Tests Test 01/23/23 07:30 Range/Units White Blood Count 9.0 4.3-11.0 10^3/uL Red Blood Count 4.64 3.80-5.11 10^6/uL Hemoglobin 15.3 11.5-16.0 g/dL Hematocrit 44 35-52 % Mean Corpuscular Volume 95 80-99 fL Mean Corpuscular Hemoglobin 33 25-34 pg Mean Corpuscular Hemoglobin Concent 35 32-36 g/dL Red Cell Distribution Width 12.5 10.0-14.5 % Platelet Count 263 130-400 10^3/uL Mean Platelet Volume 9.5 9.0-12.2 fL Immature Granulocyte % (Auto) 0 % Neutrophils (%) (Auto) 54 42-75 % Lymphocytes (%) (Auto) 39 12-44 % Monocytes (%) (Auto) 4 0-12 % Eosinophils (%) (Auto) 2 0-10 % Basophils (%) (Auto) 1 0-10 % Neutrophils # (Auto) 4.9 1.8-7.8 10^3/uL Lymphocytes # (Auto) 3.5 1.0-4.0 10^3/uL Monocytes # (Auto) 0.4 0.0-1.0 10^3/uL Eosinophils # (Auto) 0.2 0.0-0.3 10^3/uL Basophils # (Auto) 0.1 0.0-0.1 10^3/uL Immature Granulocyte # (Auto) 0.0 0.0-0.1 10^3/uL Urine Color ORANGE Urine Clarity CLEAR Urine pH 6.5 5-9 Urine Specific [place] <=1.005 1.016-1.022 Urine Protein 1+ H NEGATIVE Urine Glucose (UA) TRACE H NEGATIVE Urine Ketones NEGATIVE NEGATIVE Urine Nitrite NA NEGATIVE Urine Bilirubin 1+ H NEGATIVE Urine Urobilinogen 4.0 < = 1.0 MG/DL Urine Leukocyte Esterase 1+ H NEGATIVE Urine RBC (Auto) NA NEGATIVE Urine RBC NONE /HPF Urine WBC 2-5 /HPF Urine Squamous Epithelial Cells 2-5 /HPF Urine Crystals NONE /LPF Urine Bacteria FEW H /HPF Urine Casts NONE /LPF Urine Mucus NEGATIVE /LPF Urine Other CLUE CELLS /HPF Urine Culture Indicated NO Sodium Level 138 135-145 MMOL/L Potassium Level 3.9 3.6-5.0 MMOL/L Chloride Level 102 98-107 MMOL/L Carbon Dioxide Level 25 21-32 MMOL/L Anion Gap 11 5-14 MMOL/L Blood Urea Nitrogen 9 7-18 MG/DL Creatinine 1.13 0.60-1.30 MG/DL Estimat Glomerular Filtration Rate 61 BUN/Creatinine Ratio 8 Glucose Level 97 70-105 MG/DL Calcium Level 9.0 8.5-10.1 MG/DL Corrected Calcium 8.7 8.5-10.1 MG/DL Total Bilirubin 0.4 0.1-1.0 MG/DL Aspartate Amino Transf (AST/SGOT) 17 5-34 U/L Alanine Aminotransferase (ALT/SGPT) 12 0-55 U/L Alkaline Phosphatase 217 H 40-136 U/L Total Protein 7.7 6.4-8.2 GM/DL Albumin 4.4 3.2-4.5 GM/DL My Orders Orders - ALEKSANDRA VILLALOBOS MD Comprehensive Metabolic Panel (01/23/23 07:32) Ua Culture If Indicated (01/23/23 07:32) Ed Iv/Invasive Line Start (01/23/23 07:32) Cbc With Automated Diff (01/23/23 07:32) Orthostatic Vital Signs (Adult (01/23/23 07:32) Urine Bedside (01/23/23 07:32) Ns Iv 1000 Ml (Sodium Chloride 0.9%) (01/23/23 07:32) Ceftriaxone 1 Gm Pre-Mix (Rocephin 1 Gm (01/23/23 07:32) Urine Culture (01/23/23 08:17) Vital Signs/I&O 01/23/23 01/23/23 07:26 07:47 Temp 36.6 Pulse 89 84 105 97 Resp 16 B/P (MAP) 119/69 (86) 105/77 (86) 112/78 (89) 113/98 (103) Pulse Ox 94 O2 Delivery Room Air Capillary Refill : Progress Note #1: Progress Note Potential diagnosis of dehydration, hyponatremia, hypothyroidism, pyelonephri tis, vertigo, electrolyte imbalance, renal failure, hepatic failure. Obtain orthostatic vital signs on the patient to help evaluate her dizziness. Watch for signs of her blood pressure and heart rate changing to indicate that she was having hydration issues. Obtain peripheral IV access and send labs for complete blood count, comprehensive metabolic profile, urinalysis. Ordered normal saline 1 L IV fluid bolus for hydration and ceftriaxone 1 g IV for antibiotics to help treat her UTI. After nursing had obtained the orthostatic vital signs she did not have any significant tilt in her blood pressure although her heart rate did increase almost 20 bpm when going from laying to sitting that improved with standing. However with orthostatics she was symptomatically dizzy with changing of her positions. Progress Note #2: Time: 08:19 Progress Note Her complete blood count showed normal white blood cell count 9 and she was not anemic with a hemoglobin of 15.3. On the comprehensive metabolic profile she had no acute significant normality with her electrolytes. Her sodium was normal at 138. Potassium normal at 3.9. Her BUN was 9 with a creatinine of 1.13. Her glucose was okay at 97. On her urinalysis she did have 1+ protein and 1+ leukocyte esterase with a few bacteria and some clue cells. As she was not complaining of vaginal odor or discharge will defer antibiotics for possible bacterial vaginosis and have her finish out the course of Bactrim for her UTI. I added a urine culture to look to see if she had an overgrowth of Gardnerella or E. coli or anything that might be contributing to her symptoms. On recheck of the patient she voiced that she was feeling better and felt like she was not quite as dry and was more awake and alert. I did walk her to the bathroom and she voiced that her dizziness was much better. She continues to deny any nausea, vomiting, abdominal pain, nasal congestion, ear pressure, sore throat, cough, diarrhea. As she was feeling better and rate given her 1 L of normal saline IV fluids as well as the 1 g of Rocephin IV to help try and treat her urine infection and she was not having any significant change on her orthostatic vital signs prior to IV fluid administration I feel that she would b e safe to be discharged to home and would not have to be admitted for her dizziness and UTI. She was not febrile or having electrolyte or vital sign abnormalities to indicate signs of sepsis. Counseled on follow-up and return precautions. Stressed importance of continuing to drink plenty of fluids and stay well-hydrated. Advised to change positions slowly so that her body has t treva to adjust as well. Departure Impression Primary Impression: Acute cystitis with hematuria Additional Impression: Dizziness Disposition: 01 HOME, SELF-CARE Condition: Improved Departure-Patient Inst. Decision time for Depature: 08:25 Referrals: GHISLAINE BRYANT APRN (PCP) Primary Care Physician [facility] (Family) Primary Care Physician Patient Instructions: Dizziness, Adult ED, Urinary Tract Infection, Adult ED Add. Discharge Instructions: Continue your antibiotics to treat the infection. Make sure you are drinking plenty of fluids and continuing to stay well- hydrated. Take your time as you change positions and move slowly until the dizziness is improved. All discharge instructions reviewed with patient and/or family. Voiced understanding. Work/School Note: Work Release Form Date Seen in the Emergency Department: Jan 23, 2023 Return to Work: Jan 26, 2023 Restrictions: No Restrictions ALEKSANDRA VILLALOBOS MD Jan 23, 2023 07:41
[2023-01-23 07:45] LABS: BASOPHILS # (AUTO) 0.1 10^3/uL (0.0-0.1); BASOPHILS % (AUTO) 1 % (0-10); EOSINOPHILS # (AUTO) 0.2 10^3/uL (0.0-0.3); EOSINOPHILS % (AUTO) 2 % (0-10); HEMATOCRIT 44 % (35-52); HEMOGLOBIN 15.3 g/dL (11.5-16.0); LYMPHOCYTES # (AUTO) 3.5 10^3/uL (1.0-4.0); LYMPHOCYTES % (AUTO) 39 % (12-44); MEAN CORPUSCULAR HEMOGLOBIN 33 pg (25-34); MEAN CORPUSCULAR HGB CONC 35 g/dL (32-36); MEAN CORPUSCULAR VOLUME 95 fL (80-99); MEAN PLATELET VOLUME 9.5 fL (9.0-12.2); MONOCYTES # (AUTO) 0.4 10^3/uL (0.0-1.0); MONOCYTES % (AUTO) 4 % (0-12); NEUTROPHILS # (AUTO) 4.9 10^3/uL (1.8-7.8); NEUTROPHILS % (AUTO) 54 % (42-75); PLATELET COUNT 263 10^3/uL (130-400)
[2023-01-23 07:46] LABS: CLARITY,URINE CLEAR; COLOR,URINE ORANGE; GLUCOSE, URINE (UA) TRACE (NEGATIVE); KETONES,URINE NEGATIVE (NEGATIVE); LEUKOCYTE ESTERASE ,URINE 1+ (NEGATIVE); PH,URINE 6.5 (5-9); PROTEIN,URINE 1+ (NEGATIVE)
[2023-01-23 07:47] VITALS: BP_SYST 105; BP_SYST 112; BP_SYST 113; BP_DIAS 77; BP_DIAS 78; BP_DIAS 98
[2023-01-23 08:05] LABS: BILIRUBIN,URINE 1+ (NEGATIVE)
[2023-01-23 08:06] LABS: BACTERIA,URINE FEW /HPF; URINE OTHER CLUE CELLS /HPF
[2023-01-23 08:13] LABS: BILIRUBIN,TOTAL 0.4 MG/DL (0.1-1.0); CREATININE SERUM 1.13 MG/DL (0.60-1.30); POTASSIUM 3.9 MMOL/L (3.6-5.0); TOTAL PROTEIN 7.7 GM/DL (6.4-8.2)
[2023-01-23 08:14] LABS: ALBUMIN 4.4 GM/DL (3.2-4.5)
== END 2023-01-23 08:29 | disposition home or self-care (01) ==
LOC: EDUNIT# 07:20 → ER FS 07:22
DX: N30.01 Acute cystitis with hematuria (principal); R42 Dizziness and giddiness; Z88.1 Allergy status to other antibiotic agents; Z28.310 Unvaccinated for COVID-19
CPT/HCPCS: 36415; 80053; 81000; 84703; 85025; 87088